=== PATIENT | female | born 1970 | race Caucasian/White ===

== ENCOUNTER 2019-11-29 15:33 | Emergency (ER) | payer OTHER ==
[~2019-11-29] VITALS: Ht 182.9 cm; Wt 138.8 kg
[~2019-11-29 15:33] MED LIST: ALPR.5 PO; ALPR1 PO; AMOCLA875 PO; AMOX500 PO; BACITO TP; CIPR250 PO; CRUTCH3 USE; CRUTCH4 USE; CYCL10; CYCL10 PO; Cleocin HCl300 MG PO; Coumadin5 MG PO; DIAZ5 PO; DICL250 PO; Dazidox10 MG; ERYT333ERA PO; ESOM20; FISH1000 PO; FURO20 PO; FURO40 PO; GABA300 PO; HYDACE5 PO; HYDCHL25 PO; HYDCOR1TC TOP; IBUP600 PO; LANS30EC PO; LEVO-T25 MCG PO; LISI10 PO; LISI20; LORA1 PO; LORA2 PO; LORTAB 10-3251 EACH PO; MECL25 PO; META800 PO; METCAR500 PO; METF500 PO; METPRE4DP PO; Magnesium500 M1 PO; NAPR500 PO; NAPR550 PO; OMEP10ER; OXYACE5T; OXYACE5T PO; OXYC1TAB11 PO; PARO20; PHENA100 PO; PHENA200 PO; POTA8 PO; POTCHL20ER PO; PROM25 PO; Percocet 5-3251 EACH PO; RXHYDACE PO; RXNAPNA550 PO; RXPHEN200 PO; SERT100 PO; SERT50 PO; SPIR25; TRAM50 PO; WARF10 PO; WARF5 PO; WARF7.5 PO; [UNRECOGNIZED DRUG - OTHER]; [UNRECOGNIZED DRUG - REMARK]
[2019-11-29 16:33] LABS: BASOPHILS ABSOLUTE AUTO 0.09 K/mm3 (0.00-0.23); BASOPHILS PERCENT AUTO 1 % (0-2); EOSINOPHILS ABSOLUTE AUTO 0.49 K/mm3 (0.00-0.68); EOSINOPHILS PERCENT AUTO 4 % (0-6); Hematocrit 45.3 % (33.0-51.0); Hemoglobin 14.6 g/dL (11.5-16.0); IMMATURE GRAN ABSOLUTE AUTO 0.03 K/mm3 (0.00-0.10); IMMATURE GRAN PERCENT AUTO 0 % (0-1); LYMPHOCYTES ABSOLUTE AUTO 4.06 K/mm3 (0.84-5.20); LYMPHOCYTES PERCENT AUTO 34 % (21-46); MONOCYTES ABSOLUTE AUTO 1.09 K/mm3 (0.16-1.47); MONOCYTES PERCENT AUTO 9 % (4-13); Mean Corpuscular HGB Conc 32.2 g/dL (31.5-36.5); Mean Corpuscular Volume 90 fL (80-100); Mean Platelet Volume 11.2 fL (9.1-12.4); NEUTROPHILS PERCENT AUTO 52 % (41-73); Platelet Count 258 K/mm3 (150-400); RDW Coefficient Variation 14.1 % (11.7-14.2); RDW Standard Deviation 46.5 fL (35.1-46.3); Red Blood Cell Count 5.03 M/mm3 (3.80-5.20); White Blood Cell Count 12.06 K/mm3 (4.00-11.30)
[2019-11-29 16:58] LABS: Alanine Aminotransfer (ALT/SGP 26 U/L (12-78); Albumin, Blood 3.5 g/dL (3.4-5.0); Albumin/Globulin Ratio 0.8 (0.8-1.8); Alk Phos 99 U/L (50-136); Anion Gap 8 mmol/L (6-16); Aspartate Aminotrans (AST/SGOT 16 U/L (12-37); Bilirubin, Total 0.4 mg/dL (0.1-1.0); Blood Urea Nitrogen 14 mg/dL (8-24); Bun/Creatinine Ratio 20.5 (12.0-20.0); CO2, Blood 25 mmol/L (21-32); Chloride, Blood 102 mmol/L (98-108); Creatinine, Blood 0.68 mg/dL (0.40-1.00); Globulin, Blood 4.6 g/dL (2.2-4.0); Glomerular Filtration Rate >60 (60-); Glucose, Blood 188 mg/dL (70-99); Potassium, Blood 3.6 mmol/L (3.5-5.5); Sodium, Blood 135 mmol/L (136-145); Total Protein, Blood 8.1 g/dL (6.4-8.2); Troponin I <0.015 ng/mL (0.000-0.040)
[2019-11-29 17:55] LABS: International Normalized Ratio 2.28; Prothrombin Time Results 23.3 Sec (9.7-11.5)
== END 2019-11-29 20:03 | disposition home or self-care (01) ==
LOC: ER 15:33
PROVIDERS: Emergency Medicine
DX: R07.9 Chest pain, unspecified (principal); R10.13 Epigastric pain; F41.0 Panic disorder [episodic paroxysmal anxiety]; I10 Essential (primary) hypertension; E11.40 Type 2 diabetes mellitus with diabetic neuropathy, unspecified; K21.9 Gastro-esophageal reflux disease without esophagitis; F17.210 Nicotine dependence, cigarettes, uncomplicated; Z88.2 Allergy status to sulfonamides; Z88.1 Allergy status to other antibiotic agents; Z91.040 Latex allergy status; Z79.01 Long term (current) use of anticoagulants; Z79.899 Other long term (current) drug therapy; Z86.718 Personal history of other venous thrombosis and embolism
CPT/HCPCS: 71046; 80053; 83690; 83880; 84484; 85025; 85610; 85730; 93005; 93010; 99284-25

== ENCOUNTER 2020-07-02 00:20 | Emergency (ER) | payer OTHER ==
[~2020-07-02] VITALS: Ht 182.9 cm; Wt 135.2 kg
[2020-07-02 01:13] LABS: Source, Urine Clean Catch
[2020-07-02 01:16] LABS: Appearance, Urine Hazy (Clear); Bilirubin, Urine Neg (Neg); Blood, Urine 3+ (Neg); Color, Urine Amber (P-Yellow); Glucose Qualitative, Urine 1+ (Neg); Ketones, Urine 1+ (Neg); Leukocyte Esterase, Urine 2+ (Neg); Nitrite, Urine Pos (Neg); Protein, Urine 2+ (Neg); Urobilinogen, Urine 2+ (Normal)
[2020-07-02 01:27] LABS: Bacteria Many /hpf; Red Blood Cells, Urine 0-2 /hpf (0-2); Squamous Epithelial Cells Few /hpf (Few); White Blood Cells, Urine 25-50 /hpf (0-5)
[2020-07-02 02:51] LABS: BASOPHILS ABSOLUTE AUTO 0.09 K/mm3 (0.00-0.23); BASOPHILS PERCENT AUTO 0 % (0-2); EOSINOPHILS ABSOLUTE AUTO 0.24 K/mm3 (0.00-0.68); EOSINOPHILS PERCENT AUTO 1 % (0-6); Hematocrit 40.2 % (33.0-51.0); Hemoglobin 13.1 g/dL (11.5-16.0); IMMATURE GRAN ABSOLUTE AUTO 0.18 K/mm3 (0.00-0.10); IMMATURE GRAN PERCENT AUTO 1 % (0-1); LYMPHOCYTES ABSOLUTE AUTO 2.66 K/mm3 (0.84-5.20); LYMPHOCYTES PERCENT AUTO 13 % (21-46); MONOCYTES ABSOLUTE AUTO 2.04 K/mm3 (0.16-1.47); MONOCYTES PERCENT AUTO 10 % (4-13); Mean Corpuscular HGB 28.2 pg (26.0-34.0); Mean Corpuscular HGB Conc 32.6 g/dL (31.5-36.5); Mean Corpuscular Volume 87 fL (80-100); Mean Platelet Volume 10.5 fL (9.1-12.4); NEUTROPHILS ABSOLUTE AUTO 15.58 K/mm3 (1.96-9.15); NEUTROPHILS PERCENT AUTO 75 % (41-73); Platelet Count 280 K/mm3 (150-400); RDW Coefficient Variation 14.2 % (11.7-14.2); RDW Standard Deviation 45.2 fL (35.1-46.3); Red Blood Cell Count 4.65 M/mm3 (3.80-5.20); White Blood Cell Count 20.79 K/mm3 (4.00-11.30)
[2020-07-02 03:08] LABS: Alanine Aminotransfer (ALT/SGP 25 U/L (12-78); Albumin, Blood 2.7 g/dL (3.4-5.0); Albumin/Globulin Ratio 0.5 (0.8-1.8); Alk Phos 108 U/L (50-136); Anion Gap 7 mmol/L (6-16); Aspartate Aminotrans (AST/SGOT 16 U/L (12-37); Bilirubin, Total 0.7 mg/dL (0.1-1.0); Blood Urea Nitrogen 7 mg/dL (8-24); CO2, Blood 26 mmol/L (21-32); Calcium, Blood 8.3 mg/dL (8.5-10.1); Chloride, Blood 102 mmol/L (98-108); Creatinine, Blood 0.64 mg/dL (0.40-1.00); Globulin, Blood 5.3 g/dL (2.2-4.0); Glomerular Filtration Rate >60 (60-); Glucose, Blood 208 mg/dL (70-99); Potassium, Blood 3.5 mmol/L (3.5-5.5); Sodium, Blood 135 mmol/L (136-145)
[2020-07-02] MEDS ORDERED: Cleocin HCl300 MG PO (04:04)
== END 2020-07-02 04:20 | disposition home or self-care (01) ==
LOC: ER 00:20
PROVIDERS: Emergency Medicine
DX: L03.115 Cellulitis of right lower limb (principal); N39.0 Urinary tract infection, site not specified; Z88.2 Allergy status to sulfonamides; Z88.1 Allergy status to other antibiotic agents; Z91.040 Latex allergy status; Z88.8 Allergy status to other drugs, medicaments and biological substances; Z79.84 Long term (current) use of oral hypoglycemic drugs; Z79.899 Other long term (current) drug therapy; Z79.01 Long term (current) use of anticoagulants; K21.9 Gastro-esophageal reflux disease without esophagitis; F41.0 Panic disorder [episodic paroxysmal anxiety]; I10 Essential (primary) hypertension; E11.40 Type 2 diabetes mellitus with diabetic neuropathy, unspecified; Z86.718 Personal history of other venous thrombosis and embolism; F17.210 Nicotine dependence, cigarettes, uncomplicated
CPT/HCPCS: 36415; 80053; 81001; 85025; 87077; 87086; 87186; 96365; 99283-25

== ENCOUNTER 2021-12-21 03:24 | Day surgery (SDC) | payer BC | END 2021-12-21 23:31 | disposition home or self-care (01) | LOC: WOUND 03:24 | DX: E11.622 Type 2 diabetes mellitus with other skin ulcer (principal); L97.812 Non-pressure chronic ulcer of other part of right lower leg with fat layer exposed; I87.311 Chronic venous hypertension (idiopathic) with ulcer of right lower extremity; R60.0 Localized edema; L03.115 Cellulitis of right lower limb; I87.2 Venous insufficiency (chronic) (peripheral); E11.51 Type 2 diabetes mellitus with diabetic peripheral angiopathy without gangrene; F17.200 Nicotine dependence, unspecified, uncomplicated; Z79.01 Long term (current) use of anticoagulants; Z88.1 Allergy status to other antibiotic agents | CPT/HCPCS: G0463 ==

== ENCOUNTER 2021-12-23 02:37 | Day surgery (SDC) | payer BC | END 2021-12-23 02:38 | disposition home or self-care (01) | LOC: WOUND 02:37 | DX: E11.622 Type 2 diabetes mellitus with other skin ulcer (principal); L97.818 Non-pressure chronic ulcer of other part of right lower leg with other specified severity; I87.311 Chronic venous hypertension (idiopathic) with ulcer of right lower extremity; I87.2 Venous insufficiency (chronic) (peripheral) ==

== ENCOUNTER 2021-12-28 03:13 | Day surgery (SDC) | payer BC | END 2021-12-28 23:25 | disposition home or self-care (01) | LOC: WOUND | DX: E11.622 Type 2 diabetes mellitus with other skin ulcer (principal); L97.812 Non-pressure chronic ulcer of other part of right lower leg with fat layer exposed; L97.818 Non-pressure chronic ulcer of other part of right lower leg with other specified severity; I87.311 Chronic venous hypertension (idiopathic) with ulcer of right lower extremity; R60.0 Localized edema; L03.115 Cellulitis of right lower limb; I87.2 Venous insufficiency (chronic) (peripheral); E11.51 Type 2 diabetes mellitus with diabetic peripheral angiopathy without gangrene; Z79.01 Long term (current) use of anticoagulants ==

== ENCOUNTER 2022-01-01 02:12 | Day surgery (SDC) | payer BC | END 2022-01-01 12:00 | disposition home or self-care (01) | LOC: WOUND 02:12 | DX: E11.622 Type 2 diabetes mellitus with other skin ulcer (principal); I87.311 Chronic venous hypertension (idiopathic) with ulcer of right lower extremity; L97.818 Non-pressure chronic ulcer of other part of right lower leg with other specified severity; R60.0 Localized edema; L03.115 Cellulitis of right lower limb; I87.2 Venous insufficiency (chronic) (peripheral); E11.51 Type 2 diabetes mellitus with diabetic peripheral angiopathy without gangrene ==

== ENCOUNTER 2022-01-04 02:24 | Day surgery (SDC) | payer BC | END 2022-01-04 23:15 | disposition home or self-care (01) | LOC: WOUND 02:24 | DX: I87.311 Chronic venous hypertension (idiopathic) with ulcer of right lower extremity (principal); E11.622 Type 2 diabetes mellitus with other skin ulcer; L97.812 Non-pressure chronic ulcer of other part of right lower leg with fat layer exposed; Z86.718 Personal history of other venous thrombosis and embolism; Z79.01 Long term (current) use of anticoagulants; I87.2 Venous insufficiency (chronic) (peripheral); E11.51 Type 2 diabetes mellitus with diabetic peripheral angiopathy without gangrene | CPT/HCPCS: A9270 ==

== ENCOUNTER 2022-01-11 01:46 | Day surgery (SDC) | payer BC | END 2022-01-11 23:28 | disposition home or self-care (01) | LOC: WOUND 01:46 | DX: E11.622 Type 2 diabetes mellitus with other skin ulcer (principal); L97.818 Non-pressure chronic ulcer of other part of right lower leg with other specified severity; I87.311 Chronic venous hypertension (idiopathic) with ulcer of right lower extremity; R60.0 Localized edema; L03.115 Cellulitis of right lower limb; I87.2 Venous insufficiency (chronic) (peripheral); E11.51 Type 2 diabetes mellitus with diabetic peripheral angiopathy without gangrene ==

== ENCOUNTER 2022-01-15 00:58 | Day surgery (SDC) | payer BC | END 2022-01-15 23:56 | disposition home or self-care (01) | LOC: WOUND 00:58 | DX: E11.622 Type 2 diabetes mellitus with other skin ulcer (principal); I87.311 Chronic venous hypertension (idiopathic) with ulcer of right lower extremity; L97.812 Non-pressure chronic ulcer of other part of right lower leg with fat layer exposed; L03.115 Cellulitis of right lower limb; I87.2 Venous insufficiency (chronic) (peripheral); E11.51 Type 2 diabetes mellitus with diabetic peripheral angiopathy without gangrene; L72.3 Sebaceous cyst; Z86.718 Personal history of other venous thrombosis and embolism; Z79.01 Long term (current) use of anticoagulants ==

== ENCOUNTER 2022-01-20 01:59 | Day surgery (SDC) | payer BC | END 2022-01-20 23:20 | disposition home or self-care (01) | LOC: WOUND 01:59 | DX: E11.622 Type 2 diabetes mellitus with other skin ulcer (principal); L97.812 Non-pressure chronic ulcer of other part of right lower leg with fat layer exposed; L97.818 Non-pressure chronic ulcer of other part of right lower leg with other specified severity; I87.311 Chronic venous hypertension (idiopathic) with ulcer of right lower extremity; E11.51 Type 2 diabetes mellitus with diabetic peripheral angiopathy without gangrene; R60.0 Localized edema; L03.115 Cellulitis of right lower limb; I87.2 Venous insufficiency (chronic) (peripheral) ==

== ENCOUNTER 2022-01-29 00:35 | Day surgery (SDC) | payer BC | END 2022-01-29 23:56 | disposition home or self-care (01) | LOC: WOUND 00:35 | DX: E11.622 Type 2 diabetes mellitus with other skin ulcer (principal); L97.812 Non-pressure chronic ulcer of other part of right lower leg with fat layer exposed; I87.311 Chronic venous hypertension (idiopathic) with ulcer of right lower extremity; L97.818 Non-pressure chronic ulcer of other part of right lower leg with other specified severity; R60.0 Localized edema; L03.115 Cellulitis of right lower limb; I87.2 Venous insufficiency (chronic) (peripheral); E11.51 Type 2 diabetes mellitus with diabetic peripheral angiopathy without gangrene; L72.9 Follicular cyst of the skin and subcutaneous tissue, unspecified | CPT/HCPCS: A9270 ==

== ENCOUNTER 2022-02-05 02:43 | Day surgery (SDC) | payer BC | END 2022-02-05 23:21 | disposition home or self-care (01) | LOC: WOUND 02:43 | DX: E11.622 Type 2 diabetes mellitus with other skin ulcer (principal); L97.812 Non-pressure chronic ulcer of other part of right lower leg with fat layer exposed; I87.311 Chronic venous hypertension (idiopathic) with ulcer of right lower extremity; R60.0 Localized edema; L03.115 Cellulitis of right lower limb; I87.2 Venous insufficiency (chronic) (peripheral); E11.51 Type 2 diabetes mellitus with diabetic peripheral angiopathy without gangrene ==

== ENCOUNTER 2022-02-16 02:13 | Day surgery (SDC) | payer BC | END 2022-02-16 22:56 | disposition home or self-care (01) | LOC: WOUND 02:13 | DX: E11.622 Type 2 diabetes mellitus with other skin ulcer (principal); L97.812 Non-pressure chronic ulcer of other part of right lower leg with fat layer exposed; I87.311 Chronic venous hypertension (idiopathic) with ulcer of right lower extremity; R60.0 Localized edema; L03.115 Cellulitis of right lower limb; I87.2 Venous insufficiency (chronic) (peripheral); E11.51 Type 2 diabetes mellitus with diabetic peripheral angiopathy without gangrene | CPT/HCPCS: A9270 ==

== ENCOUNTER 2022-02-23 08:00 | Day surgery (SDC) | payer BC | END 2022-02-23 23:59 | disposition home or self-care (01) | LOC: WOUND 08:00 | DX: E11.622 Type 2 diabetes mellitus with other skin ulcer (principal); L97.812 Non-pressure chronic ulcer of other part of right lower leg with fat layer exposed; I87.311 Chronic venous hypertension (idiopathic) with ulcer of right lower extremity; R60.0 Localized edema; L03.115 Cellulitis of right lower limb; E11.51 Type 2 diabetes mellitus with diabetic peripheral angiopathy without gangrene; I87.2 Venous insufficiency (chronic) (peripheral); Z79.01 Long term (current) use of anticoagulants ==

== ENCOUNTER 2022-02-26 00:35 | Day surgery (SDC) | payer BC | END 2022-02-26 23:13 | disposition home or self-care (01) | LOC: WOUND 00:35 | DX: E11.622 Type 2 diabetes mellitus with other skin ulcer (principal); I87.311 Chronic venous hypertension (idiopathic) with ulcer of right lower extremity; L97.818 Non-pressure chronic ulcer of other part of right lower leg with other specified severity; R60.0 Localized edema; L03.115 Cellulitis of right lower limb; I87.2 Venous insufficiency (chronic) (peripheral); E11.51 Type 2 diabetes mellitus with diabetic peripheral angiopathy without gangrene ==

== ENCOUNTER 2022-03-02 01:52 | Day surgery (SDC) | payer BC | END 2022-03-02 22:57 | disposition home or self-care (01) | LOC: WOUND 01:52 | DX: E11.622 Type 2 diabetes mellitus with other skin ulcer (principal); L97.812 Non-pressure chronic ulcer of other part of right lower leg with fat layer exposed; I87.311 Chronic venous hypertension (idiopathic) with ulcer of right lower extremity; R60.0 Localized edema; L03.115 Cellulitis of right lower limb; I87.2 Venous insufficiency (chronic) (peripheral); E11.51 Type 2 diabetes mellitus with diabetic peripheral angiopathy without gangrene; M79.671 Pain in right foot ==

== ENCOUNTER 2022-03-09 02:05 | Day surgery (SDC) | payer BC | END 2022-03-09 23:28 | disposition home or self-care (01) | LOC: WOUND 02:05 | DX: E11.622 Type 2 diabetes mellitus with other skin ulcer (principal); I87.311 Chronic venous hypertension (idiopathic) with ulcer of right lower extremity; L97.812 Non-pressure chronic ulcer of other part of right lower leg with fat layer exposed; R60.0 Localized edema; L03.115 Cellulitis of right lower limb; I87.2 Venous insufficiency (chronic) (peripheral); I73.9 Peripheral vascular disease, unspecified; M79.671 Pain in right foot | CPT/HCPCS: G0463 ==

== ENCOUNTER 2022-03-16 00:58 | Day surgery (SDC) | payer BC | END 2022-03-16 23:47 | disposition home or self-care (01) | LOC: WOUND 00:58 | DX: I87.311 Chronic venous hypertension (idiopathic) with ulcer of right lower extremity (principal); L97.818 Non-pressure chronic ulcer of other part of right lower leg with other specified severity; E11.622 Type 2 diabetes mellitus with other skin ulcer; R60.0 Localized edema; L03.115 Cellulitis of right lower limb; I87.2 Venous insufficiency (chronic) (peripheral); M79.671 Pain in right foot | CPT/HCPCS: 99406; G0463 ==

== ENCOUNTER 2022-03-22 08:29 | Day surgery (SDC) | payer BC | END 2022-03-22 22:54 | disposition home or self-care (01) | LOC: WOUND 08:29 | DX: I87.311 Chronic venous hypertension (idiopathic) with ulcer of right lower extremity (principal); L97.812 Non-pressure chronic ulcer of other part of right lower leg with fat layer exposed; E11.622 Type 2 diabetes mellitus with other skin ulcer; R60.0 Localized edema; L03.115 Cellulitis of right lower limb; I87.2 Venous insufficiency (chronic) (peripheral); E11.51 Type 2 diabetes mellitus with diabetic peripheral angiopathy without gangrene; M79.671 Pain in right foot; Z79.01 Long term (current) use of anticoagulants | CPT/HCPCS: G0463 ==

== ENCOUNTER 2022-03-29 00:57 | Day surgery (SDC) | payer BC | END 2022-03-29 23:25 | disposition home or self-care (01) | LOC: WOUND 00:57 | DX: I87.311 Chronic venous hypertension (idiopathic) with ulcer of right lower extremity (principal); E11.622 Type 2 diabetes mellitus with other skin ulcer; L97.818 Non-pressure chronic ulcer of other part of right lower leg with other specified severity; R60.0 Localized edema; L03.115 Cellulitis of right lower limb; I87.2 Venous insufficiency (chronic) (peripheral); M79.671 Pain in right foot; E11.51 Type 2 diabetes mellitus with diabetic peripheral angiopathy without gangrene; Z79.01 Long term (current) use of anticoagulants; Z86.718 Personal history of other venous thrombosis and embolism | CPT/HCPCS: 99406; G0463 ==

== ENCOUNTER 2022-04-01 06:47 | Emergency (ER) | payer BC ==
[~2022-04-01] VITALS: Ht 180.3 cm; Wt 127.0 kg
[2022-04-01] MEDS ORDERED: METF500C PO (07:16)
[2022-04-01] MEDS ORDERED: ELIQUIS5 M2 PO (07:16)
[2022-04-01] MEDS ORDERED: CIPR500 PO (07:16)
[2022-04-01 07:59] LABS: BASOPHILS ABSOLUTE AUTO 0.09 K/mm3 (0.00-0.23); BASOPHILS PERCENT AUTO 1 % (0-2); EOSINOPHILS PERCENT AUTO 2 % (0-6); Hematocrit 39.3 % (33.0-51.0); Hemoglobin 12.5 g/dL (11.5-16.0); IMMATURE GRAN ABSOLUTE AUTO 0.24 K/mm3 (0.00-0.10); IMMATURE GRAN PERCENT AUTO 1 % (0-1); LYMPHOCYTES ABSOLUTE AUTO 3.97 K/mm3 (0.84-5.20); LYMPHOCYTES PERCENT AUTO 22 % (21-46); MONOCYTES ABSOLUTE AUTO 1.53 K/mm3 (0.16-1.47); MONOCYTES PERCENT AUTO 8 % (4-13); Mean Corpuscular HGB 28.5 pg (26.0-34.0); Mean Corpuscular HGB Conc 31.8 g/dL (31.5-36.5); Mean Corpuscular Volume 90 fL (80-100); NEUTROPHILS ABSOLUTE AUTO 12.14 K/mm3 (1.96-9.15); NEUTROPHILS PERCENT AUTO 66 % (41-73); Platelet Count 415 K/mm3 (150-400); RDW Standard Deviation 45.5 fL (35.1-46.3); Red Blood Cell Count 4.38 M/mm3 (3.80-5.20); White Blood Cell Count 18.37 K/mm3 (4.00-11.30)
[2022-04-01 08:19] LABS: Albumin, Blood 1.9 g/dL (3.4-5.0); Albumin/Globulin Ratio 0.3 (0.8-1.8); Bilirubin, Total 0.4 mg/dL (0.1-1.0); Bun/Creatinine Ratio 17.4 (12.0-20.0); Calcium, Blood 8.8 mg/dL (8.5-10.1); Creatinine, Blood 0.92 mg/dL (0.40-1.00); Globulin, Blood 7.5 g/dL (2.2-4.0); Potassium, Blood 3.6 mmol/L (3.5-5.5); Total Protein, Blood 9.4 g/dL (6.4-8.2)
== END 2022-04-01 11:09 | disposition home or self-care (01) ==
LOC: ER 06:47
PROVIDERS: Student in an Organized Health Care Education/Training Program
DX: E86.0 Dehydration (principal); L03.115 Cellulitis of right lower limb; Z88.2 Allergy status to sulfonamides; Z88.1 Allergy status to other antibiotic agents; Z91.040 Latex allergy status; I10 Essential (primary) hypertension; E11.40 Type 2 diabetes mellitus with diabetic neuropathy, unspecified; F17.210 Nicotine dependence, cigarettes, uncomplicated; Z79.84 Long term (current) use of oral hypoglycemic drugs; Z79.01 Long term (current) use of anticoagulants; Z79.899 Other long term (current) drug therapy
CPT/HCPCS: 36415; 80053; 85025; 93005; 93010; J7030

== ENCOUNTER 2022-04-06 01:46 | Day surgery (SDC) | payer BC ==
[~2022-04-06 01:46] MED LIST changes: +CIPR500 PO; +ELIQUIS5 M2 PO; +METF500C PO
== END 2022-04-06 23:16 | disposition home or self-care (01) ==
LOC: WOUND 01:46
DX: E11.622 Type 2 diabetes mellitus with other skin ulcer (principal); L97.818 Non-pressure chronic ulcer of other part of right lower leg with other specified severity; I87.311 Chronic venous hypertension (idiopathic) with ulcer of right lower extremity; R60.0 Localized edema; L03.115 Cellulitis of right lower limb; I87.2 Venous insufficiency (chronic) (peripheral); E11.51 Type 2 diabetes mellitus with diabetic peripheral angiopathy without gangrene
CPT/HCPCS: G0463

== ENCOUNTER 2022-04-21 02:46 | Day surgery (SDC) | payer BC | END 2022-04-21 23:42 | disposition home or self-care (01) | LOC: WOUND 02:46 | DX: I87.311 Chronic venous hypertension (idiopathic) with ulcer of right lower extremity (principal); L97.811 Non-pressure chronic ulcer of other part of right lower leg limited to breakdown of skin; E11.622 Type 2 diabetes mellitus with other skin ulcer; R60.0 Localized edema; L03.115 Cellulitis of right lower limb; I87.2 Venous insufficiency (chronic) (peripheral); E11.51 Type 2 diabetes mellitus with diabetic peripheral angiopathy without gangrene; M79.671 Pain in right foot; Z72.0 Tobacco use | CPT/HCPCS: 99406; A9270 ==

== ENCOUNTER 2022-04-30 08:00 | Day surgery (SDC) | payer BC | END 2022-04-30 23:59 | disposition home or self-care (01) | LOC: WOUND 08:00 | DX: I87.311 Chronic venous hypertension (idiopathic) with ulcer of right lower extremity (principal); L97.811 Non-pressure chronic ulcer of other part of right lower leg limited to breakdown of skin; E11.622 Type 2 diabetes mellitus with other skin ulcer; R60.0 Localized edema; L03.115 Cellulitis of right lower limb; E11.51 Type 2 diabetes mellitus with diabetic peripheral angiopathy without gangrene; I87.2 Venous insufficiency (chronic) (peripheral); Z86.718 Personal history of other venous thrombosis and embolism; Z79.01 Long term (current) use of anticoagulants ==

== ENCOUNTER 2022-05-14 01:52 | Day surgery (SDC) | payer BC | END 2022-05-14 23:01 | disposition home or self-care (01) | LOC: WOUND 01:52 | DX: I87.311 Chronic venous hypertension (idiopathic) with ulcer of right lower extremity (principal); E11.622 Type 2 diabetes mellitus with other skin ulcer; L97.818 Non-pressure chronic ulcer of other part of right lower leg with other specified severity; L97.319 Non-pressure chronic ulcer of right ankle with unspecified severity; E11.51 Type 2 diabetes mellitus with diabetic peripheral angiopathy without gangrene; R60.0 Localized edema; L03.115 Cellulitis of right lower limb; I87.2 Venous insufficiency (chronic) (peripheral); M79.671 Pain in right foot; L97.812 Non-pressure chronic ulcer of other part of right lower leg with fat layer exposed | CPT/HCPCS: 99406; G0463 ==

== ENCOUNTER 2022-05-18 05:16 | Day surgery (SDC) | payer BC | END 2022-05-18 22:54 | disposition home or self-care (01) | LOC: WOUND 05:16 | DX: I87.311 Chronic venous hypertension (idiopathic) with ulcer of right lower extremity (principal); L97.818 Non-pressure chronic ulcer of other part of right lower leg with other specified severity; E11.622 Type 2 diabetes mellitus with other skin ulcer; R60.0 Localized edema; L03.115 Cellulitis of right lower limb; I87.2 Venous insufficiency (chronic) (peripheral); E11.51 Type 2 diabetes mellitus with diabetic peripheral angiopathy without gangrene; M79.671 Pain in right foot; Z72.0 Tobacco use | CPT/HCPCS: 99406 ==

== ENCOUNTER 2022-05-21 03:44 | Day surgery (SDC) | payer BC | END 2022-05-21 23:06 | disposition home or self-care (01) | LOC: WOUND 03:44 | DX: I87.311 Chronic venous hypertension (idiopathic) with ulcer of right lower extremity (principal); L97.818 Non-pressure chronic ulcer of other part of right lower leg with other specified severity; E11.622 Type 2 diabetes mellitus with other skin ulcer; R60.0 Localized edema; L03.115 Cellulitis of right lower limb; I87.2 Venous insufficiency (chronic) (peripheral); E11.51 Type 2 diabetes mellitus with diabetic peripheral angiopathy without gangrene; M79.671 Pain in right foot; Z72.0 Tobacco use ==

== ENCOUNTER 2022-05-28 01:06 | Day surgery (SDC) | payer BC | END 2022-05-28 23:07 | disposition home or self-care (01) | LOC: WOUND 01:06 | DX: I87.311 Chronic venous hypertension (idiopathic) with ulcer of right lower extremity (principal); L97.818 Non-pressure chronic ulcer of other part of right lower leg with other specified severity; E11.622 Type 2 diabetes mellitus with other skin ulcer; R60.0 Localized edema; L03.115 Cellulitis of right lower limb; E11.51 Type 2 diabetes mellitus with diabetic peripheral angiopathy without gangrene; I87.2 Venous insufficiency (chronic) (peripheral); M79.671 Pain in right foot; Z72.0 Tobacco use ==

== ENCOUNTER 2022-06-01 09:04 | Day surgery (SDC) | payer BC | END 2022-06-01 23:55 | disposition home or self-care (01) | LOC: WOUND 09:04 | DX: E11.622 Type 2 diabetes mellitus with other skin ulcer (principal); I87.311 Chronic venous hypertension (idiopathic) with ulcer of right lower extremity; L97.818 Non-pressure chronic ulcer of other part of right lower leg with other specified severity; L03.115 Cellulitis of right lower limb; E11.51 Type 2 diabetes mellitus with diabetic peripheral angiopathy without gangrene; Z72.0 Tobacco use ==

== ENCOUNTER 2022-06-04 02:59 | Day surgery (SDC) | payer BC | END 2022-06-04 23:09 | disposition home or self-care (01) | LOC: WOUND 02:59 | DX: I87.311 Chronic venous hypertension (idiopathic) with ulcer of right lower extremity (principal); E11.622 Type 2 diabetes mellitus with other skin ulcer; L97.818 Non-pressure chronic ulcer of other part of right lower leg with other specified severity; L03.115 Cellulitis of right lower limb; I73.9 Peripheral vascular disease, unspecified; M79.671 Pain in right foot; Z72.0 Tobacco use ==

== ENCOUNTER → 2023-02-06 | Outpatient (CLI) | payer BC | END | disposition home or self-care (01) | LOC: LAB 17:14 → LAB SHORT 17:14 | DX: L03.90 Cellulitis, unspecified (principal) | CPT/HCPCS: 87081 ==

== ENCOUNTER 2023-02-12 23:51 | Inpatient (IN) | payer BC ==
[~2023-02-12] VITALS: Ht 182.9 cm; Wt 122.0 kg
[2023-02-13 02:04] LABS: BASOPHILS ABSOLUTE AUTO 0.12 K/mm3 (0.00-0.23); BASOPHILS PERCENT AUTO 1 % (0-2); EOSINOPHILS ABSOLUTE AUTO 0.52 K/mm3 (0.00-0.68); EOSINOPHILS PERCENT AUTO 3 % (0-6); Hematocrit 39.5 % (33.0-51.0); Hemoglobin 12.8 g/dL (11.5-16.0); IMMATURE GRAN PERCENT AUTO 1 % (0-1); LYMPHOCYTES ABSOLUTE AUTO 2.52 K/mm3 (0.84-5.20); LYMPHOCYTES PERCENT AUTO 15 % (21-46); MONOCYTES ABSOLUTE AUTO 1.91 K/mm3 (0.16-1.47); MONOCYTES PERCENT AUTO 11 % (4-13); Mean Corpuscular HGB Conc 32.4 g/dL (31.5-36.5); Mean Corpuscular Volume 86 fL (80-100); Mean Platelet Volume 10.4 fL (9.1-12.4); NEUTROPHILS ABSOLUTE AUTO 12.19 K/mm3 (1.96-9.15); NEUTROPHILS PERCENT AUTO 70 % (41-73); Platelet Count 276 K/mm3 (150-400); RDW Coefficient Variation 13.6 % (11.7-14.2); RDW Standard Deviation 43.4 fL (35.1-46.3); Red Blood Cell Count 4.57 M/mm3 (3.80-5.20); White Blood Cell Count 17.36 K/mm3 (4.00-11.30)
[2023-02-13 02:22] LABS: Albumin, Blood 2.4 g/dL (3.4-5.0); Albumin/Globulin Ratio 0.4 (0.8-1.8); Bilirubin, Total 0.2 mg/dL (0.1-1.0); Bun/Creatinine Ratio 16.9 (12.0-20.0); Calcium, Blood 8.6 mg/dL (8.5-10.1); Creatinine, Blood 0.89 mg/dL (0.40-1.00); Globulin, Blood 5.7 g/dL (2.2-4.0); Potassium, Blood 3.7 mmol/L (3.5-5.5); Total Protein, Blood 8.1 g/dL (6.4-8.2)
[2023-02-13] MEDS ORDERED: Doxycycline Mo100 M1 PO (03:44)
[2023-02-13] MEDS ORDERED: AMOCLA875 PO (03:44)
--- NOTE | 2023-02-13 04:52 | NUR ---
SHIFT SUMMARY PATIENT ARRIVED TO MEDICAL FLOOR AT 0440 THIS MORNING. PATIENT IS ALERT AND ORIENTED. PATIENT ORIENTED TO ROOM. SKIN ASSESSMENT DONE WITH RUKHSANA BELTRAN. DR DE DIOS NOTIFIED OF PATIENT ARRIVAL. NICOTINE PATCH AND IV FLUIDS PROVIDED. PATIENT HAS NO OTHER CONCERNS. PATIENT REQUESTS TO REST. WILL MONITOR UNTIL SHIFT CHANGE.
[2023-02-13 10:02] LABS: BASOPHILS PERCENT AUTO 1 % (0-2); EOSINOPHILS ABSOLUTE AUTO 0.65 K/mm3 (0.00-0.68); EOSINOPHILS PERCENT AUTO 4 % (0-6); Hematocrit 36.9 % (33.0-51.0); Hemoglobin 12.1 g/dL (11.5-16.0); IMMATURE GRAN ABSOLUTE AUTO 0.16 K/mm3 (0.00-0.10); IMMATURE GRAN PERCENT AUTO 1 % (0-1); LYMPHOCYTES ABSOLUTE AUTO 3.11 K/mm3 (0.84-5.20); LYMPHOCYTES PERCENT AUTO 20 % (21-46); MONOCYTES ABSOLUTE AUTO 1.77 K/mm3 (0.16-1.47); MONOCYTES PERCENT AUTO 11 % (4-13); Mean Corpuscular HGB 28.4 pg (26.0-34.0); Mean Corpuscular HGB Conc 32.8 g/dL (31.5-36.5); Mean Corpuscular Volume 87 fL (80-100); Mean Platelet Volume 10.4 fL (9.1-12.4); NEUTROPHILS ABSOLUTE AUTO 9.68 K/mm3 (1.96-9.15); NEUTROPHILS PERCENT AUTO 63 % (41-73); Platelet Count 250 K/mm3 (150-400); RDW Coefficient Variation 13.7 % (11.7-14.2); RDW Standard Deviation 43.4 fL (35.1-46.3); Red Blood Cell Count 4.26 M/mm3 (3.80-5.20); White Blood Cell Count 15.47 K/mm3 (4.00-11.30)
[2023-02-13 10:25] LABS: Bun/Creatinine Ratio 20.1 (12.0-20.0); Calcium, Blood 8.6 mg/dL (8.5-10.1); Creatinine, Blood 0.65 mg/dL (0.40-1.00); Potassium, Blood 3.4 mmol/L (3.5-5.5)
--- NOTE | 2023-02-13 16:24 | NUR ---
SHIFT SUMMARY MS BAJWA IS OX4. SHE DIDN'T SLEEP MUCH LAST NIGHT SO HAS BEEN TIRED TODAY, UP INDEPENDENTLY IN HER ROOM, STEADY GAIT. RLE 3+ EDEMA, PURPLE DISCOLORATION AND FIRM SKIN. PT SAID THIS IS AN IMPROVEMENT ON HOW IT HAS BEEN. CELLULITIS TO L UPPER BACK/SHOULDER AREA IS BRIGHT RED, WEEPING PUS. AREA CLEANSED AND ABD PAD APPLIED. PHOTOGRAPH PUT IN CHART OF CELLULLITIS. AREA SWOLLEN. SHE HAS DENIED PAIN SO FAR THIS SHIFT. BED LOW, CALL LIGHT IN REACH.
[2023-02-14 02:20] LABS: BASOPHILS ABSOLUTE AUTO 0.08 K/mm3 (0.00-0.23); BASOPHILS PERCENT AUTO 1 % (0-2); EOSINOPHILS ABSOLUTE AUTO 0.62 K/mm3 (0.00-0.68); EOSINOPHILS PERCENT AUTO 6 % (0-6); Hemoglobin 12.3 g/dL (11.5-16.0); IMMATURE GRAN ABSOLUTE AUTO 0.16 K/mm3 (0.00-0.10); IMMATURE GRAN PERCENT AUTO 1 % (0-1); LYMPHOCYTES PERCENT AUTO 23 % (21-46); MONOCYTES ABSOLUTE AUTO 1.11 K/mm3 (0.16-1.47); MONOCYTES PERCENT AUTO 10 % (4-13); Mean Corpuscular HGB 28.4 pg (26.0-34.0); Mean Corpuscular HGB Conc 32.4 g/dL (31.5-36.5); Mean Corpuscular Volume 88 fL (80-100); Mean Platelet Volume 10.4 fL (9.1-12.4); NEUTROPHILS ABSOLUTE AUTO 6.74 K/mm3 (1.96-9.15); NEUTROPHILS PERCENT AUTO 60 % (41-73); Platelet Count 280 K/mm3 (150-400); RDW Coefficient Variation 13.5 % (11.7-14.2); RDW Standard Deviation 43.4 fL (35.1-46.3); Red Blood Cell Count 4.33 M/mm3 (3.80-5.20); White Blood Cell Count 11.31 K/mm3 (4.00-11.30)
[2023-02-14 02:40] LABS: Vancomycin, Trough 17.3 ug/mL (5.0-10.0)
[2023-02-14 02:49] LABS: Bun/Creatinine Ratio 21.5 (12.0-20.0); Calcium, Blood 8.8 mg/dL (8.5-10.1); Creatinine, Blood 0.65 mg/dL (0.40-1.00); Potassium, Blood 3.5 mmol/L (3.5-5.5)
--- NOTE | 2023-02-14 19:23 | NUR ---
SHIFT SUMMARY PT IS ALERT AND ORIENTED X4. R/A. NO ACUTE CHANGES. INDEPENDENT IN THE ROOM. PT EDUCATED ON THE IMPORTANCE OF FOLLOWING ADA DIET FOR CONTROL OF DM. PT STATED THAT SHE UNDERSTANDS BUT WHATS TO EAT WHAT SHE CHOOSES. BG TREATED PER EMAR. PT DRESSING CHANGED 2X THIS SHIFT.
[2023-02-15 02:05] LABS: BASOPHILS PERCENT AUTO 1 % (0-2); EOSINOPHILS PERCENT AUTO 6 % (0-6); Hemoglobin 12.4 g/dL (11.5-16.0); IMMATURE GRAN ABSOLUTE AUTO 0.21 K/mm3 (0.00-0.10); IMMATURE GRAN PERCENT AUTO 2 % (0-1); LYMPHOCYTES ABSOLUTE AUTO 2.85 K/mm3 (0.84-5.20); LYMPHOCYTES PERCENT AUTO 27 % (21-46); MONOCYTES ABSOLUTE AUTO 0.96 K/mm3 (0.16-1.47); MONOCYTES PERCENT AUTO 9 % (4-13); Mean Corpuscular HGB 28.7 pg (26.0-34.0); Mean Corpuscular HGB Conc 32.6 g/dL (31.5-36.5); Mean Corpuscular Volume 88 fL (80-100); Mean Platelet Volume 10.3 fL (9.1-12.4); NEUTROPHILS ABSOLUTE AUTO 5.71 K/mm3 (1.96-9.15); NEUTROPHILS PERCENT AUTO 55 % (41-73); Platelet Count 260 K/mm3 (150-400); RDW Coefficient Variation 13.3 % (11.7-14.2); Red Blood Cell Count 4.32 M/mm3 (3.80-5.20); White Blood Cell Count 10.43 K/mm3 (4.00-11.30)
[2023-02-15 02:36] LABS: Vancomycin, Trough 23.9 ug/mL (5.0-10.0)
--- NOTE | 2023-02-15 05:34 | NUR ---
PT SLEPT MOST OF NOC, DID GO ON A WALK THROUGH HOSPITAL, REMINDED PT TO NOT GO OUTSIDE. VANCO FROM Q8HRS TO Q12HRS. DRESSING CHANGED WITH MODERATE DRAINAGE. PT IS HOPING TO SWITCH TO ORAL ABX AND BE ABLE TO GO HOME TODAY.
--- NOTE | 2023-02-15 11:28 | NUR ---
DRESSING CHANGE NOTED YELLOW/MIGUEL FLUID ON ABD OVER HER WOUND. REMOVED ABD. NO ODOR NOTED. SKIN DARK, RED, HARD. FIRM MARGIN MEDIAL TOWARD SPIN. CLEANED SKIN AND REAPPLIED THE PINK FLOWER FOAM TO SEE IF IT WOULD STAY TIGHTER TO HER SKIN. PT TOLERATED WELL. CONTINUE POC.
--- NOTE | 2023-02-15 12:30 | NUR ---
CASE CONF WITH ESTRELLITA BELTRAN, SHE REPORTS PT IS WAITING TO HAVE US DONE OF CELLUTLITIS ON BACK TO LOOK FOR ABSCESS. PT TOLERATING IV ABX WELL AND PAIN IS MANAGED WITH CURRENT MEDICATION REGIMEN. PT IS TO BE DCD TODAY OR TOMORROW, NEEDS TO HAVE A PICC LINE LACED FOR OP IV ANTIBIOTICS. PT IS COPING WELL, JUST GETTING LUNCH AND BLOOD SUGAR BEING CHECKED. WILL COME BACK LATER TO VISIT WITH PT AND OFFER SUPPORT.
[2023-02-15] MEDS ORDERED: Vancomycin1 GM/2501 IV (13:42)
[2023-02-15] MEDS ORDERED: VISBIOME 112.51 EACH PO (13:42)
--- NOTE | 2023-02-15 17:05 | NUR ---
PT SITTING UP IN BED, INTRODUCED MYSELF AND PROVIDED EDUCATION ON WHAT PALLIATIVE CARE IS AND WHAT WE DO. PT IS AGREEABLE TO MY VISIT. PT DENIES PAIN AND REPORTS SHE IS SLEEPING WELL. PT DOES HAVE QUESTIONS ABOUT WHEN US WILL COME SHE IS VERY ANXIOUS TO GO HOME. ADVISED THAT WITH A CONVERSATION EARLIER WITH ESTRELLITA HER RN, US IS OVERHWELMED WITH ORDERS WHICH IS WHATS CAUSING THE DELAY. PT VU, HOWEVER REPORTS THAT SHE IS JUST READY TO LEAVE, SHE FEELS COOPED UP IN THE ROOM AND IS USED TO BEING OUTSIDE. PT REPORTS THAT SHE LIVES AT [facility] WITH FAMILY AND HAS A LOT OF SUPPORT AND HAS A JOB THAT SHE LOVES AND IS MISSING A LOT. PROVIDED THERAPEUTIC LISTENING AND EMPATHY WITH HER CONCERNS, PT SEEMS TO BECOME MORE RELAXED, LESS ANXIOUS AND IS SMILING AT THE END OF MY VISIT. PT HAS APPOINTMENTS ALREADY SET UP FOR HER OP THERAPY TOMORROW AND IS PLANNING ON BEING DCD TONIGHT WHICH SHE IS VERY EXCITED ABOUT. ADVISED HER TO CALL PALLIATIVE CARE IF SHE HAS ADDITIONAL NEEDS OR CONCERNS.
--- NOTE | 2023-02-15 17:45 | NUR ---
ULTRASOUND DR DUBON CALLED TO NOTIFY OF ORDERED U/S COMPLETION. CONTINUE POC.
--- NOTE | 2023-02-15 17:54 | NUR ---
LEFT SCAPULAR WOUND REDRESSED AFTER U/S REMOVED OLD DRESSING. SMALL AMOUNT OF ROMAN DRAINAGE NOTED ON DRESSING. AREA IS LARGE, FIRM AND RED. A SMALL WHITE AREA NOTED BELOW HER BUTTERFLY TATTOO WING. CONTINUE POC.
--- NOTE | 2023-02-15 21:56 | NUR ---
DC INSTRUCTIONS GIVEN AND WENT OVER WITH PT, NO QUESTIONS FROM PT. IV WAS REMOVED IT WAS INFULTRATED AND UNABLE TO FLUSH. WALKED PT OUT TO VEHICLE, PERSONAL BELONGINGS WITH PT ALONG WITH SOME WOUND CARE PRODUCTS.
== END 2023-02-15 21:37 | disposition home or self-care (01) | DRG 872 ==
LOC: ER 23:51 → MEDS 02-13 03:53
PROVIDERS: Family Medicine; Student in an Organized Health Care Education/Training Program; ADMIT Student in an Organized Health Care Education/Training Program
DX: A41.02 Sepsis due to Methicillin resistant Staphylococcus aureus (principal); D68.51 Activated protein C resistance; T88.6XXA Anaphylactic reaction due to adverse effect of correct drug or medicament properly administered, initial encounter; L03.312 Cellulitis of back [any part except buttock and flank]; F17.210 Nicotine dependence, cigarettes, uncomplicated; T36.1X5A Adverse effect of cephalosporins and other beta-lactam antibiotics, initial encounter; T37.0X5A Adverse effect of sulfonamides, initial encounter; K21.9 Gastro-esophageal reflux disease without esophagitis; F41.0 Panic disorder [episodic paroxysmal anxiety]; I10 Essential (primary) hypertension; E11.42 Type 2 diabetes mellitus with diabetic polyneuropathy; F12.10 Cannabis abuse, uncomplicated; F15.10 Other stimulant abuse, uncomplicated; Z71.51 Drug abuse counseling and surveillance of drug abuser; Z98.890 Other specified postprocedural states; Z86.718 Personal history of other venous thrombosis and embolism; Z71.6 Tobacco abuse counseling; Z88.2 Allergy status to sulfonamides; Z88.1 Allergy status to other antibiotic agents; Z88.8 Allergy status to other drugs, medicaments and biological substances; Z91.040 Latex allergy status; Z79.84 Long term (current) use of oral hypoglycemic drugs; Z79.01 Long term (current) use of anticoagulants; Z79.2 Long term (current) use of antibiotics; E66.9 Obesity, unspecified; Z68.37 Body mass index [BMI] 37.0-37.9, adult
CPT/HCPCS: 36415; 73201; 76882; 80048; 80053; 80202; 82947; 83036; 83605; 85025; 87040; 96365; 96366; 99285; A9270; J1815; J3370; J7030; J7050; Q9967

== ENCOUNTER 2023-02-16 03:28 | Day surgery (SDC) | payer BC ==
[~2023-02-16] VITALS: Ht 182.9 cm; Wt 122.0 kg
[~2023-02-16 03:28] MED LIST changes: +Doxycycline Mo100 M1 PO; +VISBIOME 112.51 EACH PO; +Vancomycin1 GM/2501 IV
[2023-02-16 17:06] LABS: Creatinine, Blood 0.72 mg/dL (0.40-1.00); Vancomycin, Trough 18.7 ug/mL (5.0-10.0)
== END 2023-02-16 19:03 | disposition home or self-care (01) ==
LOC: ATC 03:28
PROVIDERS: Student in an Organized Health Care Education/Training Program
DX: L03.312 Cellulitis of back [any part except buttock and flank] (principal); B95.62 Methicillin resistant Staphylococcus aureus infection as the cause of diseases classified elsewhere; E11.9 Type 2 diabetes mellitus without complications; F17.210 Nicotine dependence, cigarettes, uncomplicated; Z88.2 Allergy status to sulfonamides; Z88.1 Allergy status to other antibiotic agents; Z91.040 Latex allergy status; Z79.899 Other long term (current) drug therapy; Z79.84 Long term (current) use of oral hypoglycemic drugs; Z79.01 Long term (current) use of anticoagulants
CPT/HCPCS: 80202; 82565; 96365; 96366; C1751; J2001; J3370; J7050

== ENCOUNTER 2023-02-17 01:50 | Day surgery (SDC) | payer BC | END 2023-02-17 18:04 | disposition home or self-care (01) | LOC: ATC 01:50 | DX: A41.02 Sepsis due to Methicillin resistant Staphylococcus aureus (principal); L03.312 Cellulitis of back [any part except buttock and flank] | CPT/HCPCS: 96365; 96366; J3370; J7050 ==

== ENCOUNTER 2023-02-18 01:40 | Day surgery (SDC) | payer BC | END 2023-02-18 18:10 | disposition home or self-care (01) | LOC: ATC 01:40 | DX: A41.02 Sepsis due to Methicillin resistant Staphylococcus aureus (principal); L03.312 Cellulitis of back [any part except buttock and flank] | CPT/HCPCS: 96365; 96366; J3370; J7050 ==

== ENCOUNTER 2023-02-19 00:18 | Day surgery (SDC) | payer BC ==
[2023-02-19 08:10] LABS: Creatinine, Blood 0.74 mg/dL (0.40-1.00); Vancomycin, Trough 16.2 ug/mL (5.0-10.0)
--- NOTE | 2023-02-20 07:44 | NUR ---
QUINCY BELTRAN STOPPED AND DISCHARGED PT TODAY
== END 2023-02-19 22:51 | disposition home or self-care (01) ==
LOC: ATC 00:18
PROVIDERS: Student in an Organized Health Care Education/Training Program
DX: L03.312 Cellulitis of back [any part except buttock and flank] (principal); B95.62 Methicillin resistant Staphylococcus aureus infection as the cause of diseases classified elsewhere
CPT/HCPCS: 80202; 82565; 96365; 96366; J3370; J7050

== ENCOUNTER 2023-02-20 03:57 | Day surgery (SDC) | payer BC ==
--- NOTE | 2023-02-20 14:03 | NUR ---
PM DOSE WILL BE GIVEN BY QUINCY BELTRANEYE SPECIALIST ON 2ND FLOOR
== END 2023-02-20 22:55 | disposition home or self-care (01) ==
LOC: ATC 03:57
DX: A41.9 Sepsis, unspecified organism (principal); L03.312 Cellulitis of back [any part except buttock and flank]; B95.62 Methicillin resistant Staphylococcus aureus infection as the cause of diseases classified elsewhere; E11.9 Type 2 diabetes mellitus without complications; F41.9 Anxiety disorder, unspecified
CPT/HCPCS: 96365; 96366; J3370; J7050

== ENCOUNTER 2023-02-21 00:52 | Day surgery (SDC) | payer BC | END 2023-02-21 18:01 | disposition home or self-care (01) | LOC: ATC 00:52 | DX: A41.9 Sepsis, unspecified organism (principal); B95.62 Methicillin resistant Staphylococcus aureus infection as the cause of diseases classified elsewhere; L03.312 Cellulitis of back [any part except buttock and flank]; Z88.1 Allergy status to other antibiotic agents; Z88.2 Allergy status to sulfonamides; Z91.040 Latex allergy status; E11.9 Type 2 diabetes mellitus without complications; F41.9 Anxiety disorder, unspecified | CPT/HCPCS: 96365; J3370; J7050 ==

== ENCOUNTER 2023-02-22 02:24 | Day surgery (SDC) | payer BC | END 2023-02-22 18:16 | disposition home or self-care (01) | LOC: ATC 02:24 | DX: L03.312 Cellulitis of back [any part except buttock and flank] (principal); B95.62 Methicillin resistant Staphylococcus aureus infection as the cause of diseases classified elsewhere | CPT/HCPCS: 96365; J3370; J7050 ==

== ENCOUNTER 2024-09-13 10:24 | Day surgery (SDC) | payer BC ==
[~2024-09-13] VITALS: Ht 180.3 cm; Wt 121.6 kg
[~2024-09-13 10:24] MED LIST changes: +Balanced Salt Epinephrine Irrigation Solution 500 mL IR SCH; +Lidocaine HCl/Pf 1% 5 ML VIAL XX SCH; +Moxifloxacin HCL 0.5 MG/0.1 ML 0.4MLSYR RIGHTEYE SCH; +NS 500 ML IV ONE; +PHENYLEPHRINE\\TROPICAMIDE\\TETRACAINE OPHTHALMIC DILATING SOLN RIGHTEYE PRN; +Povidone-Iodine 450 DROP/30 ML Solution ONE; +Povidone-Iodine 450 DROP/30 ML Solution RIGHTEYE SCH; +Tetracaine HCl/Pf 0.5% Opth Soln 4 ml ONE; +Triamcinolone Inj Susp 40 MG / ML 1ML Vial INJ SCH; +Triamcinolone Inj Susp 40 MG / ML 1ML Vial ONE
[2024-09-13] MEDS ORDERED: NS 500 ML IV ONE (11:00)
[2024-09-13] MEDS ORDERED: Midazolam HCl 1MG / ML 2ML Vial ONE (11:25)
[2024-09-13] MEDS ORDERED: Tetracaine HCl 0.5% Opth Soln 15 ml RIGHTEYE ONE (11:29)
--- NOTE | 2024-09-13 11:39 | NUR ---
09/13/[address] IN TO TAKE OVER FOR DR SOLIZ AT 1131.
[2024-09-13 11:50] VITALS: BP 161/101
== END 2024-09-13 12:01 | disposition home or self-care (01) ==
LOC: ORSCSDS 10:24
PROVIDERS: Ophthalmology
PROC: 08RJ3JZ Replacement of Right Lens with Synthetic Substitute, Percutaneous Approach (ICD-10-PCS; principal; 2024-09-13 12:00)
DX: H25.11 Age-related nuclear cataract, right eye (principal); H25.813 Combined forms of age-related cataract, bilateral; E11.36 Type 2 diabetes mellitus with diabetic cataract; I10 Essential (primary) hypertension; J45.909 Unspecified asthma, uncomplicated; I48.91 Unspecified atrial fibrillation; F17.210 Nicotine dependence, cigarettes, uncomplicated; E66.9 Obesity, unspecified; Z68.36 Body mass index [BMI] 36.0-36.9, adult; Z79.01 Long term (current) use of anticoagulants; Z79.899 Other long term (current) drug therapy
CPT/HCPCS: 82947; J2250; J3301; J7040; V2632

== ENCOUNTER 2024-09-19 09:33 | Day surgery (SDC) | payer BC ==
[~2024-09-19] VITALS: Ht 182.9 cm; Wt 123.2 kg
[~2024-09-19 09:33] MED LIST changes: +Moxifloxacin HCL 0.5 MG/0.1 ML 0.4MLSYR LEFTEYE SCH; -Moxifloxacin HCL 0.5 MG/0.1 ML 0.4MLSYR RIGHTEYE SCH; +PHENYLEPHRINE\\TROPICAMIDE\\TETRACAINE OPHTHALMIC DILATING SOLN LEFTEYE PRN; -PHENYLEPHRINE\\TROPICAMIDE\\TETRACAINE OPHTHALMIC DILATING SOLN RIGHTEYE PRN; +Povidone-Iodine 450 DROP/30 ML Solution LEFTEYE SCH; -Povidone-Iodine 450 DROP/30 ML Solution RIGHTEYE SCH
[2024-09-19] MEDS ORDERED: NS 500 ML IV ONE (10:02)
[2024-09-19] MEDS ORDERED: Midazolam HCl 1MG / ML 2ML Vial ONE (10:40)
[2024-09-19 11:33] VITALS: BP 151/89
== END 2024-09-19 11:28 | disposition home or self-care (01) ==
LOC: ORSCSDS 09:33
PROVIDERS: Ophthalmology
PROC: 08RK3JZ Replacement of Left Lens with Synthetic Substitute, Percutaneous Approach (ICD-10-PCS; principal; 2024-09-19 11:00)
DX: E11.36 Type 2 diabetes mellitus with diabetic cataract (principal); H25.812 Combined forms of age-related cataract, left eye; Z96.1 Presence of intraocular lens; I48.91 Unspecified atrial fibrillation; J45.909 Unspecified asthma, uncomplicated; R25.1 Tremor, unspecified; Z68.36 Body mass index [BMI] 36.0-36.9, adult; E66.9 Obesity, unspecified; F17.210 Nicotine dependence, cigarettes, uncomplicated; Z79.899 Other long term (current) drug therapy
CPT/HCPCS: 82947; J2250; J3301; J7040; V2632

== ENCOUNTER 2025-10-16 15:36 | Emergency (ER) | payer OTHER ==
[~2025-10-16] VITALS: Ht 182.9 cm; Wt 129.3 kg
[~2025-10-16 15:36] MED LIST changes: -Balanced Salt Epinephrine Irrigation Solution 500 mL IR SCH; -Lidocaine HCl/Pf 1% 5 ML VIAL XX SCH; -Moxifloxacin HCL 0.5 MG/0.1 ML 0.4MLSYR LEFTEYE SCH; -NS 500 ML IV ONE; -PHENYLEPHRINE\\TROPICAMIDE\\TETRACAINE OPHTHALMIC DILATING SOLN LEFTEYE PRN; -Povidone-Iodine 450 DROP/30 ML Solution LEFTEYE SCH; -Povidone-Iodine 450 DROP/30 ML Solution ONE; -Tetracaine HCl/Pf 0.5% Opth Soln 4 ml ONE; -Triamcinolone Inj Susp 40 MG / ML 1ML Vial INJ SCH; -Triamcinolone Inj Susp 40 MG / ML 1ML Vial ONE
[2025-10-16 16:22] LABS: BASOPHILS ABSOLUTE AUTO 0.04 K/mm3 (0.00-0.23); BASOPHILS PERCENT AUTO 0 % (0-2); EOSINOPHILS ABSOLUTE AUTO 0.20 K/mm3 (0.00-0.68); EOSINOPHILS PERCENT AUTO 2 % (0-6); Hematocrit 37.7 % (33.0-51.0); Hemoglobin 11.9 g/dL (11.5-16.0); IMMATURE GRAN ABSOLUTE AUTO 0.04 K/mm3 (0.00-0.10); IMMATURE GRAN PERCENT AUTO 0 % (0-1); LYMPHOCYTES ABSOLUTE AUTO 1.76 K/mm3 (0.84-5.20); LYMPHOCYTES PERCENT AUTO 17 % (21-46); MONOCYTES ABSOLUTE AUTO 1.38 K/mm3 (0.16-1.47); MONOCYTES PERCENT AUTO 13 % (4-13); Mean Corpuscular HGB Conc 31.6 g/dL (31.5-36.5); Mean Corpuscular Volume 90 fL (80-100); NEUTROPHILS ABSOLUTE AUTO 7.14 K/mm3 (1.96-9.15); NEUTROPHILS PERCENT AUTO 68 % (41-73); NRBC ABSOLUTE 0.00 K/mm3 (0.00-0.02); NRBC Auto 0.0 /100 WBC (0.0-0.2); Platelet Count 169 K/mm3 (150-400); RDW Coefficient Variation 14.4 % (11.7-14.2); RDW Standard Deviation 47.5 fL (35.1-46.3)
[2025-10-16 16:41] LABS: Alanine Aminotransfer (ALT/SGP 32.0 U/L (12-78); Albumin, Blood 2.9 g/dL (3.4-5.0); Albumin/Globulin Ratio 0.6 (0.8-1.8); Anion Gap 10.0 mmol/L (3-11); Aspartate Aminotrans (AST/SGOT 26.0 U/L (12-37); Bilirubin, Total 0.5 mg/dL (0.1-1.0); Blood Urea Nitrogen 13.0 mg/dL (8-24); CO2, Blood 24.0 mmol/L (21-32); Calcium, Blood 8.3 mg/dL (8.5-10.1); Chloride, Blood 104.0 mmol/L (98-108); Creatinine, Blood 0.74 mg/dL (0.40-1.00); Globulin, Blood 4.5 g/dL (2.2-4.0); Glucose, Blood 248.0 mg/dL (70-99); Potassium, Blood 3.3 mmol/L (3.5-5.5); Sodium, Blood 135.0 mmol/L (136-145); Total Protein, Blood 7.4 g/dL (6.4-8.2)
[2025-10-16] MEDS ORDERED: OxyCODONE 7.5 mg/Acetam 325 mg TABLET PO ONE (17:35)
[2025-10-16 17:58] VITALS: BP 131/99
[2025-10-16] MEDS ORDERED: ELIQUIS5 M2 PO (18:18)
== END 2025-10-16 18:25 | disposition home or self-care (01) ==
LOC: ER 15:36
PROVIDERS: Student in an Organized Health Care Education/Training Program
DX: I82.431 Acute embolism and thrombosis of right popliteal vein (principal); E87.6 Hypokalemia; I10 Essential (primary) hypertension; E11.40 Type 2 diabetes mellitus with diabetic neuropathy, unspecified; K21.9 Gastro-esophageal reflux disease without esophagitis; F17.200 Nicotine dependence, unspecified, uncomplicated; Z88.2 Allergy status to sulfonamides; Z91.040 Latex allergy status; Z88.1 Allergy status to other antibiotic agents
CPT/HCPCS: 80053; 85025; 93005; 93010; 93971; 99284-25; A9270